=== PATIENT | male | born 1995 | race African-American/Black ===

== ENCOUNTER 2018-01-01 13:12 | Emergency (ER) | payer OTHER ==
--- NOTE | 2018-01-01 13:28 | EDPHY ---
HPI/HX/ROS/PE/MDM - Data Points Imaging: Discussed imaging studies w/ foundry process engineer Radiologist Narrative: CHIEF COMPLAINT: Fall, head injury HISTORY OF PRESENT ILLNESS: This patient is a 22 year old male arriving via EMS following a head injury shortly prior to arrival. Earlier today, he had a headache and was walking on a bridge when he became very dizzy. This caused him to fall, striking his face on a metal bar. He denies any loss of consciousness. He was able to get up and walk a few blocks after this event. He endorses continued headache and a "pressure" sensation in his head. He denies any other trauma or further complaints. He denies any alcohol use today. He had a small amount of marijuana today but denies any other drug use. Denies history of hypertension, diabetes, kidney or liver problems. No fever, chills, chest pain, shortness of breath, palpitations, vomiting, diarrhea, urinary complaints. REVIEW OF SYSTEMS: A comprehensive 10 system review of systems is otherwise negative aside from elements mentioned in the history of present illness and medical decision making. PAST MEDICAL HISTORY: Denies SOCIAL HISTORY: Transient. Endorses intermittent illicit drug use. Lives in [place]. VITAL SIGNS: Reviewed by me GENERAL: Well-developed, well-nourished, disheveled, malodorous. HEENT: There are two lacerations, 2 cm and 0.5cm, to the right eyebrow. Eyes: No icterus, no injection. LINDA, EOMI. No nystagmus. Mouth: moist mucous membranes. No trauma seen to the tongue. No erythema or lesions. Neck: supple with no adenopathy. No tenderness palpation. Full range of motion. LUNGS: Clear to auscultation bilaterally, no wheezes, rhonchi or rales. CARDIAC: Regular rate and rhythm, no rubs, murmurs or gallops. ABDOMEN: Soft, nontender, nondistended, bowel sounds normal. BACK: No CVA tenderness. EXTREMITIES: No trauma. No edema. Range of motion is normal throughout. NEURO: Alert and oriented, grossly nonfocal. SKIN: Warm and dry, no rash. PSYCHIATRIC: Normal mentation, no agitation. Portions of this note were transcribed by a medical delivery driver. I personally performed a history, physical exam, medical decision making, and confirmed accuracy of information the transcribed note. (Kayla Oritz) ED Course: I was asked by Dr. Kayla Ortiz to repair right eyebrow laceration. Laceration repair #1 . Verbal consent was obtained from the patient. The 2 cm laceration on the right eyebrow was anesthetized using 1% lidocaine with epinephrine. The wound was irrigated with saline, draped and explored to its base with a gloved finger. There were no deep structures involved. The wound was repaired with 6 0 Prolene , 3 sutures. The wound repair was simple. The procedure was performed by myself. Laceration repair #2. Verbal consent was obtained from the patient. The 0.5 cm laceration on the right eyebrow was anesthetized using 1% lidocaine with epinephrine. The wound was irrigated with saline, draped and explored to its base with a gloved finger. There were no deep structures involved. The wound was repaired with 6 0 Prolene, 1 suture. The wound repair was simple. The procedure was performed by myself. (Shanell Apple) 13:18 [facility] at bedside. 22 y/o male presents with an eyebrow laceration secondary to a fall earlier today. Plan for CT head and cervical spine to evaluate for acute trauma. The patient reported headache and dizziness prior to his fall, but he declines any blood work or testing apart from the imaging studies. I explained the benefit of this, but he continues to decline. 14:[address] Boykin, radiologist. CT head shows soft tissue swelling over the right frontal region supraorbital rim without evidence for a skull fracture. Mildly displaced nasal bone fracture bilaterally. No evidence for acute intracranial abnormality. CT neck negative for acute processes. Laceration repair performed by AFUA Chavira. See note above. Reassessed patient. Discussed imaging results. he continues to decline any further evaluation. Plan to discharge home in good condition. Follow up and return precautions discussed. He is comfortable with this plan. (Kayla Ortiz ) MDM: Differential diagnosis of this patient's fall was considered including but not limited to intracranial injury, spinal injury, lacerations, abrasions, and contusions. Instigating event for the patient's fall was considered including but not limited to drug or alcohol intoxication, drug or alcohol withdrawal, mechanical fall, electrolyte abnormalities, cardiac event. Patient declined any workup with respect to evaluating him for the cause of his fall. (Kayla Ortiz) General Initial Vital Signs: Initial Vital Signs Temperature (C) 36.8 C 01/01/18 13:18 Heart Rate 93 01/01/18 13:18 Respiratory Rate 18 01/01/18 13:18 Blood Pressure 101/71 01/01/18 13:18 O2 Sat (%) 97 01/01/18 13:18 O2 Delivery Mode Room Air Allergies/Adverse Reactions: No Known Allergies Allergy (Unverified 01/01/18 13:17) Home Medications: Medication Instructions Recorded NK [No Known Home Meds] 01/01/18 Departure - Departure Disposition: Home, Routine, Self-Care Clinical Impression: Facial laceration Qualifiers: Encounter type: initial encounter Qualified Code(s): S01.81XA - Laceration without foreign body of other part of head, initial encounter Closed head injury Qualifiers: Encounter type: initial encounter Qualified Code(s): S09.90XA - Unspecified injury of head, initial encounter Nasal bone fracture Qualifiers: Encounter type: initial encounter Fracture type: closed Qualified Code(s): S02.2XXA - Fracture of nasal bones, initial encounter for closed fracture Condition: Good Instructions: Care For Your Stitches (ED), Laceration (ED), Head Injury (ED) Additional Instructions: Okay to use Tylenol or ibuprofen for any headache discomfort. Keep the wound clean and dry. Clean suture line with a mixture of hydrogen peroxide and water. Apply a thin layer of antibiotic cream. Dress wound if desired. Suture removal in 5 days. Watch for signs of infection. No soaking wound in water. Showers are ok. No swimming until sutures are removed. Your head CT and cervical spine CT show no acute injuries. Referrals: Vishnu Carr MD [[facility] Primary Care Provider] - As per Instructions [facility],. [Clinic] - As per Instructions Report Scribed for: Kayla Ortiz Report Scribed by: Micki Rodriges Date of Report: 01/01/18 Time of Report: 15:25
[2018-01-01 15:24] VITALS: BP 114/76
== END 2018-01-01 15:28 | disposition home or self-care (01) ==
PROC: 0HQ1XZZ Repair Face Skin, External Approach (ICD-10-PCS; principal; 2018-01-01)
DX: S01.81XA Laceration without foreign body of other part of head, initial encounter (principal); S02.2XXA Fracture of nasal bones, initial encounter for closed fracture; W01.198A Fall on same level from slipping, tripping and stumbling with subsequent striking against other object, initial encounter; Y92.89 Other specified places as the place of occurrence of the external cause; Y93.01 Activity, walking, marching and hiking

== ENCOUNTER 2018-03-23 01:34 | Emergency (ER) | payer OTHER ==
[2018-03-23] MEDS ORDERED: NS 1,000 ML IV ONE (01:39)
[2018-03-23] MEDS ORDERED: NALOXONE HCL 0.4 MG/ML INJ IVP ONE (01:39)
--- NOTE | 2018-03-23 01:54 | EDPHY ---
H & P Time Seen by Provider: 03/23/18 01:40 HPI/ROS: HPI CHIEF COMPLAINT: Snorted heroin. HISTORY OF PRESENT ILLNESS: 22-year-old male presents emergency room by EMS and police for heroin overdose. Patient was found in between cars lying on the ground admits to snorting heroin. He arrives to the emergency room stating that he wants to just go to sleep. He is very sleepy. Denies any other drugs or intoxication. Denies trauma. EMS reports stable vital signs. Past Medical History: Denies denies medical history Past Surgical History: Denies Surgical history Social History: Endorses snorting heroin tonight. Family History: Noncontributory ROS REVIEW OF SYSTEMS: 10 Systems were reviewed and negative with the exception of the elements mentioned in the history of present illness. Exam Constitutional sleepy, nontoxic, triage nursing summary reviewed, vital signs reviewed, awake/alert. Eyes normal conjunctivae and sclera, EOMI, PERRLA. HENT normal inspection, atraumatic, moist mucus membranes, no epistaxis, neck supple/ no meningismus, no raccoon eyes. Respiratory clear to auscultation bilaterally, normal breath sounds, no respiratory distress, no wheezing. Cardiovascular rate normal, regular rhythm, no murmur, no edema, distal pulses normal. Gastrointestinal soft, non-tender, no rebound, no guarding, normal bowel sounds, no distension, no pulsatile mass. Genitourinary no CVA tenderness. Musculoskeletal no midline vertebral tenderness, full range of motion, no calf swelling, no tenderness of extremities, no meningismus, good pulses, neurovascularly intact. Skin pink, warm, & dry, no rash, skin atraumatic. Neurologic sleepy, awake, alert and oriented x 3, AAOx3, moves all 4 extremities equally, motor intact, sensory intact, CN II-XII intact, normal cerebellar, normal vision, normal speech. Psychiatric sleepy Heme/Lymph/Immune no lymphadenopathy. Differential Diagnosis: Plan for this patient IV establishment blood draw, basic electrolytes, IV Narcan, IV fluids, court monitor, pulse ox, and re- evaluate. Medical Decision Making: Plan for this patient see above but IV establishment IV fluid IV Narcan re-evaluation monitor for further sedation. Re-evaluation: 0613: Patient received IV fluids here and has been monitor. He has not had any problems with re- sedation or opiate overdose this time. Patient has been sleeping most of time for 5 hr here in emergency room no complaints. He ambulated well throughout the emergency room. Denies any feelings of wanting to harm self or anybody else he is calm and cooperative. He received IV fluids. Vital signs are stable. Safe for discharge. Source: Patient, Police, EMS - Medical/Surgical History Hx Asthma: No Hx Chronic Respiratory Disease: No Hx Diabetes: No Hx Cardiac Disease: No Hx Renal Disease: No Hx Cirrhosis: No Hx Alcoholism: No Hx HIV/AIDS: No Hx Splenectomy or Spleen Trauma: No Other PMH: denies - Social History Smoking Status: Unknown if ever smoked Constitutional: Initial Vital Signs Heart Rate 81 03/23/18 01:41 Respiratory Rate 16 03/23/18 01:41 Blood Pressure 111/66 03/23/18 01:41 O2 Sat (%) 97 03/23/18 01:41 O2 Delivery Mode Room Air Allergies/Adverse Reactions: No Known Allergies Allergy (Verified 03/23/18 01:37) Home Medications: Medication Instructions Recorded NK [No Known Home Meds] 01/01/18 Medical Decision Making - Data Points Laboratory Results: Laboratory Results 03/23/18 05:50 03/23/18 03/23/18 03/23/18 05:55 05:50 05:50 WBC 6.59 10^3/uL 10^3/uL (3.80-9.50) RBC 5.09 10^6/uL 10^6/uL (4.40-6.38) Hgb 13.5 g/dL L g/dL (13.7-17.5) Hct 38.4 % L % (40.0-51.0) MCV 75.4 fL L fL (81.5-99.8) MCH 26.5 pg L pg (27.9-34.1) MCHC 35.2 g/dL g/dL (32.4-36.7) RDW 13.2 % % (11.5-15.2) Plt Count 254 10^3/uL 10^3/uL (150-400) MPV 8.9 fL fL (8.7-11.7) Neut % (Auto) 52.0 % % (39.3-74.2) Lymph % (Auto) 39.0 % % (15.0-45.0) [place] % (Auto) 7.3 % % (4.5-13.0) Eos % (Auto) 1.2 % % (0.6-7.6) Baso % (Auto) 0.3 % % (0.3-1.7) Nucleat RBC Rel Count 0.0 % % (0.0-0.2) Absolute Neuts (auto) 3.43 10^3/uL 10^3/uL (1.70-6.50) Absolute Lymphs (auto) 2.57 10^3/uL 10^3/uL (1.00-3.00) Absolute Monos (auto) 0.48 10^3/uL 10^3/uL (0.30-0.80) Absolute Eos (auto) 0.08 10^3/uL 10^3/uL (0.03-0.40) Absolute Basos (auto) 0.02 10^3/uL 10^3/uL (0.02-0.10) Absolute Nucleated RBC 0.00 10^3/uL 10^3/uL (0-0.01) Immature Gran % 0.2 % % (0.0-1.1) Immature Gran # 0.01 10^3/uL 10^3/uL (0.00-0.10) Sodium Pending Potassium Pending Chloride Pending Carbon Dioxide Pending Anion Gap Pending BUN Pending Creatinine Pending Estimated GFR Pending Glucose Pending Calcium Pending Urine Opiates Screen Pending Urine Barbiturates Pending Ur Phencyclidine Scrn Pending Ur Amphetamine Screen Pending U Benzodiazepines Scrn Pending Urine Cocaine Screen Pending U Marijuana (THC) Screen Pending Medications Given: Discontinued Medications Sodium Chloride (Ns) 1,000 mls @ 0 mls/hr IV ONCE ONE PRN Reason: Wide Open Stop: 03/23/18 01:40 Last Admin: 03/23/18 02:17 Dose: 1,000 mls Naloxone HCl (Narcan) 0.4 mg IVP EDNOW ONE Stop: 03/23/18 01:40 Last Admin: 03/23/18 02:17 Dose: 0.4 mg Departure - Departure Disposition: Home, Routine, Self-Care Clinical Impression: Heroin abuse Condition: Good Instructions: Narcotic Safety (ED) Referrals: NONE *PRIMARY CARE P,. [Primary Care Provider] - As per Instructions
[2018-03-23 06:04] LABS: PLATELET COUNT 254 10^3/uL (150-400)
[2018-03-23 06:55] VITALS: BP 90/47
== END 2018-03-23 07:05 | disposition home or self-care (01) ==
LOC: EDUNIT#
DX: F11.10 Opioid abuse, uncomplicated (principal)
CPT/HCPCS: 96374; J2310